=== PATIENT | male | born 1950 | race Caucasian/White ===

== ENCOUNTER 2017-10-15 23:11 | Inpatient (IN) | payer OTHER ==
[~2017-10-15] VITALS: Ht 162.6 cm; Wt 79.5 kg
[2017-10-16 00:31] LABS: CALCIUM 7.9 mg/dL (8.5-10.1); CREATININE SERUM 2.5 mg/dL (0.7-1.3)
[2017-10-16 00:36] LABS: ALBUMIN 3.2 g/dL (3.4-5.0); BILIRUBIN TOTAL 0.5 mg/dL (0.20-1.00); TOTAL PROTEIN, SERUM 5.9 g/dL (6.4-8.2)
[2017-10-16 00:46] LABS: BASOPHIL % 0.4 % (0-2); PLATELET COUNT 227 x10^3mcL (130-400); RED CELL DISTRIBUTION WIDTH 13.9 % (11.5-14.5)
[2017-10-16] MEDS ORDERED: CLOPIDOGREL75 M1 PO (01:21)
[2017-10-16] MEDS ORDERED: LISINOPRIL2.5 MG PO (01:21)
[2017-10-16] MEDS ORDERED: SIMVASTATIN40 M1 PO (01:22)
[2017-10-16] MEDS ORDERED: CARVEDILOL3.125 M1 PO (01:22)
[2017-10-16] MEDS ORDERED: ISOSORBIDE MONO30 MG PO (01:23)
[2017-10-16] MEDS ORDERED: OMEPRAZOLE20 M4 PO (01:24)
[2017-10-16] MEDS ORDERED: HYDROCHLOROTH12.5 M2 PO (01:24)
[2017-10-16] MEDS ORDERED: TRADJENTA5 M1 PO (01:25)
[2017-10-16] MEDS ORDERED: GOOD SENSE ASP325 MG PO (01:25)
[2017-10-16] MEDS ORDERED: GLIPIZIDE ER10 M1 PO (01:26)
[2017-10-16] MEDS ORDERED: TYLENOL WITH CO1 TA2 PO (01:27)
[2017-10-16 02:05] LABS: CHOLESTEROL/HDL RATIO 3.7; IRON 82 ug/dL (65-170); MAGNESIUM 1.4 mg/dL (1.8-2.4); PHOSPHOROUS 3.7 mg/dL (2.5-4.9); T3 TOTAL 0.69 ng/mL; TOTAL IRON BINDING CAPACITY 273 ug/dL (250-450)
[2017-10-16 02:16] LABS: RED BLOOD CELLS 3.42 M/mm3 (4.52-5.90)
[2017-10-16 02:33] LABS: FREE T4 0.81 ng/dL (0.76-1.46)
[2017-10-16 02:34] LABS: FREE THYROXINE INDEX 1.6 ug/dL (1.4-4.5); T4(THYROXINE) 4.1 ug/dL (4.7-13.3)
[2017-10-16 02:47] VITALS: BP 111/67
[2017-10-16 05:27] VITALS: BP 114/61
[2017-10-16 06:05] LABS: CALCIUM 8.4 mg/dL (8.5-10.1); CARBON DIOXIDE 24.1 mmol/L (21-32); CREATININE SERUM 2.5 mg/dL (0.7-1.3); POTASSIUM SERUM 4.8 mmol/L (3.5-5.1)
[2017-10-16 06:59] LABS: microscopic required? NO
[2017-10-16 07:40] LABS: UA SPECIFIC GRAVITY >=1.030 (1.005-1.035); urine erythrocyte NEGATIVE (NEGATIVE)
[2017-10-16 07:53] LABS: AMPHETAMINE QUAL UR NONE DETECTED (See below)
[2017-10-16 09:37] VITALS: BP 124/64
[2017-10-16 13:36] VITALS: BP 95/52
[2017-10-16 17:44] VITALS: BP 129/63
[2017-10-16 18:22] LABS: BASOPHIL % 0.3 % (0-2); PLATELET COUNT 204 x10^3mcL (130-400); RED CELL DISTRIBUTION WIDTH 13.9 % (11.5-14.5)
[2017-10-16 20:24] VITALS: BP 103/56
[2017-10-17 05:13] VITALS: BP 111/54
[2017-10-17 07:27] LABS: CALCIUM 8.6 mg/dL (8.5-10.1); CARBON DIOXIDE 22.3 mmol/L (21-32); CREATININE SERUM 2.4 mg/dL (0.7-1.3); POTASSIUM SERUM 4.1 mmol/L (3.5-5.1)
[2017-10-17 08:01] LABS: MAGNESIUM 1.9 mg/dL (1.8-2.4); PHOSPHOROUS 3.5 mg/dL (2.5-4.9)
[2017-10-17 08:18] LABS: BASOPHIL % 0.6 % (0-2); PLATELET COUNT 172 x10^3mcL (130-400); RED CELL DISTRIBUTION WIDTH 13.7 % (11.5-14.5)
[2017-10-17 08:44] VITALS: BP 104/55
[2017-10-17 13:44] VITALS: BP 131/64
[2017-10-17 17:31] VITALS: BP 140/82
[2017-10-17 21:09] VITALS: BP 141/69
[2017-10-18 05:21] VITALS: BP 134/74
[2017-10-18 07:02] VITALS: BP 139/65
[2017-10-18 07:16] VITALS: Ht 162.6 cm; Wt 79.5 kg
[2017-10-18 07:28] LABS: BASOPHIL % 0.4 % (0-2); PLATELET COUNT 197 x10^3mcL (130-400); RED CELL DISTRIBUTION WIDTH 13.6 % (11.5-14.5)
[2017-10-18 07:30] LABS: CALCIUM 8.8 mg/dL (8.5-10.1); CREATININE SERUM 2.3 mg/dL (0.7-1.3); POTASSIUM SERUM 4.2 mmol/L (3.5-5.1)
[2017-10-18 10:30] VITALS: BP 124/61
[2017-10-18 13:31] VITALS: BP 115/69
[2017-10-18 17:49] VITALS: BP 138/60
[2017-10-18 20:46] VITALS: BP 133/61
[2017-10-19 05:49] VITALS: BP 116/52
[2017-10-19 06:58] LABS: CALCIUM 8.3 mg/dL (8.5-10.1); CARBON DIOXIDE 24.2 mmol/L (21-32); CREATININE SERUM 2.2 mg/dL (0.7-1.3); MAGNESIUM 1.7 mg/dL (1.8-2.4); POTASSIUM SERUM 4.3 mmol/L (3.5-5.1)
[2017-10-19 06:59] LABS: BASOPHIL % 0.5 % (0-2); PLATELET COUNT 193 x10^3mcL (130-400)
[2017-10-19 09:36] VITALS: BP 130/61
[2017-10-19] MEDS ORDERED: NATURAL IRON65 MG PO (11:25)
[2017-10-19] MEDS ORDERED: COLACE100 MG PO (11:33)
[2017-10-19 12:47] VITALS: BP 130/61
== END 2017-10-19 13:23 | disposition home or self-care (01) | DRG 919 ==
LOC: ED 23:11 → DU 10-16 01:13
PROVIDERS: Emergency Medicine; Family Medicine; General Practice; Internal Medicine
PROC: 0W3P8ZZ Control Bleeding in Gastrointestinal Tract, Via Natural or Artificial Opening Endoscopic (ICD-10-PCS; principal; 2017-10-18 07:30)
PROC: 0D5K8ZZ Destruction of Ascending Colon, Via Natural or Artificial Opening Endoscopic (ICD-10-PCS; 2017-10-18 07:30)
DX: K91.840 Postprocedural hemorrhage of a digestive system organ or structure following a digestive system procedure (principal); N17.0 Acute kidney failure with tubular necrosis; K55.21 Angiodysplasia of colon with hemorrhage; D62 Acute posthemorrhagic anemia; E44.1 Mild protein-calorie malnutrition; K63.5 Polyp of colon; E11.65 Type 2 diabetes mellitus with hyperglycemia; K21.9 Gastro-esophageal reflux disease without esophagitis; I10 Essential (primary) hypertension; I25.10 Atherosclerotic heart disease of native coronary artery without angina pectoris; E83.51 Hypocalcemia; E83.42 Hypomagnesemia; F17.210 Nicotine dependence, cigarettes, uncomplicated; Z68.30 Body mass index [BMI] 30.0-30.9, adult; Z95.5 Presence of coronary angioplasty implant and graft; Z79.02 Long term (current) use of antithrombotics/antiplatelets; Y84.8 Other medical procedures as the cause of abnormal reaction of the patient, or of later complication, without mention of misadventure at the time of the procedure; Y92.009 Unspecified place in unspecified non-institutional (private) residence as the place of occurrence of the external cause
CPT/HCPCS: 45378; 83880; 84439; J1200; J1610; J2250; J2310; J3010; J3475; J3490; J7030; Q0092